=== PATIENT | female | born 1935 | race Two or more races ===

== ENCOUNTER 2024-04-23 11:55 | Inpatient (IN) | payer OTHER, SELFPAY ==
[2024-04-18 09:28] VITALS: BMI 22.6
[2024-04-18 10:13] LABS: APTT 27.1 Sec (23.4-35.0); INR 1.07; PT 13.9 Sec (11.4-14.6)
[2024-04-18 10:21] LABS: Hematocrit 41.7 % (37.0-47.0); Hemoglobin 13.5 g/dL (12.0-16.0); Mean Corp Hgb Conc. 32.4 g/dL (33.0-37.0); Mean Corpuscular Hgb 29.7 pg (27.0-31.0); Mean Corpuscular Volume 91.6 fL (81.0-99.0); Mean Platelet Volume 11.3 fL (7.4-10.4); Platelet Count 256 10^3/uL (130-400); Red Blood Cell Count 4.55 10^6/uL (4.20-5.40); Red Cell Dist. Width 15.6 % (11.5-14.5); White Blood Cell Count 6.8 10^3/uL (4.8-10.8)
[2024-04-18 11:53] LABS: Glycohemoglobin (HgbA1c) 5.7 % (4.0-5.6)
[2024-04-18 12:10] LABS: ALT (SGPT) 14 U/L (0-35); AST (SGOT) 30 U/L (14-36); Albumin 4.5 g/dl (3.5-5.0); Alkaline Phosphatase 76 U/L (38-126); Blood Urea Nitrogen 26 mg/dl (7-17); Calcium 9.9 mg/dl (8.4-10.2); Carbon Dioxide 25 mmol/L (22-30); Chloride 105 mmol/L (98-107); Estimated Creatinine Clearance 43 ml/min; Glucose 85 mg/dl (70-99); Potassium 4.1 mmol/L (3.5-5.1); Sodium 142 mmol/L (135-145); Total Bilirubin 0.9 mg/dl (0.2-1.3); Total Protein 7.5 g/dl (6.3-8.2); eGFR > 60.00
[2024-04-23 12:25] VITALS: BP 129/68
--- NOTE | 2024-04-23 13:06 | W.PN.UPDATE ---
Update Note
Progress Note Update
Patient admitted for bowel prep today, surgery in AM. NPO at midnight. Okay for clears today. Patient to take own home medication of ciprofloxicin and metronidazole. Sutab bowel prep patient is bringing from home. Directions below:
Sutab
1. At 3:00 PM Open 1 bottle of 12 tablets. Fill the provided container with 16 ounces of water. Swallow each tablet with a sip of water, and drink the entire amount of water over 15 to 20 minutes.
2. At 4:15 PM Fill the provided container again with 16 ounces of water, and drink the entire amount of water over 30 minutes.
3. At 5:15 PM Fill the provided container again with 16 ounces of water, and drink the entire amount of water over 30 minutes.
4. After finishing the first does, you may again have clear liquids.
5. At 8:00 PM Open the 2nd bottle of 12 tablets. Fill the provided container with 16 ounces of water. Swallow each tablet with a sip of water, and drink the entire amount of water over 15 to 20 minutes.
6. At 9:15 PM Fill the provided container again with 16 ounces of water, and drink the entire amount of water over 30 minutes.
7. At 10:15 PM Fill the provided container again with 16 ounces of water, and drink the entire amount of water over 30 minutes.
8. After finishing the second does, you may again have clear liquids until midnight. Then NPO.
[2024-04-23 13:15] LABS: % Basophils 0.5 % (0-2); % Eosinophils 0.1 % (0-6); % Immature Granulocytes 0.3 % (0-0.5); % Lymphocytes 19.6 % (20.5-51.1); % Monocytes 8.7 % (1.7-9.3); % Neutrophils 70.8 % (42.2-75.2); Absolute Lymphocytes 1.7 10^3/uL (1.2-3.4); Absolute Monocytes 0.8 10^3/uL (0.1-0.6); Absolute Neutrophils 6.1 10^3/uL (1.4-6.5); Hematocrit 41.3 % (37.0-47.0); Hemoglobin 13.9 g/dL (12.0-16.0); Mean Corp Hgb Conc. 33.7 g/dL (33.0-37.0); Mean Corpuscular Hgb 30.3 pg (27.0-31.0); Mean Corpuscular Volume 90.2 fL (81.0-99.0); Nucleated Red Blood Cells % 0 %; Platelet Count 272 10^3/uL (130-400); Red Blood Cell Count 4.58 10^6/uL (4.20-5.40); Red Cell Dist. Width 15.3 % (11.5-14.5); White Blood Cell Count 8.6 10^3/uL (4.8-10.8)
[2024-04-23 13:25] LABS: INR 1.08; PT 13.8 Sec (11.4-14.6)
[2024-04-23 13:26] LABS: APTT 25.2 Sec (23.4-35.0)
[2024-04-23 13:58] LABS: Blood Urea Nitrogen 36 mg/dl (7-17); Calcium 9.8 mg/dl (8.4-10.2); Carbon Dioxide 29 mmol/L (22-30); Chloride 98 mmol/L (98-107); Estimated Creatinine Clearance 34 ml/min; Glucose 97 mg/dl (70-99); Potassium 3.4 mmol/L (3.5-5.1); Sodium 142 mmol/L (135-145); eGFR 54.53
[2024-04-23 15:18] VITALS: BP 131/56
[2024-04-23] MEDS: NON-FORMULARY ITEM 12 BOX PO (15:32)
[2024-04-23] MEDS: NON-FORMULARY ITEM 1 UNIT PO ×3 (15:33→22:55)
[2024-04-23] MEDS: NON-FORMULARY ITEM 500 MG PO (15:33)
[2024-04-23] MEDS: NON-FORMULARY ITEM PO (21:56)
[2024-04-23 23:00] VITALS: BP 122/47
[2024-04-24] VITALS (18 sets, daily range): BP systolic 86–138; BP diastolic 37–78; BMI 22.4
[2024-04-24] MEDS: NON-FORMULARY ITEM 500 MG PO (00:20)
[2024-04-24] MEDS: NSS 1000 IV ×2 (00:22→23:08)
[2024-04-24] MEDS: NON-FORMULARY ITEM 12 BOX PO (04:39)
[2024-04-24 07:52] LABS: % Basophils 0.6 % (0-2); % Eosinophils 0.9 % (0-6); % Immature Granulocytes 0.3 % (0-0.5); % Lymphocytes 20.4 % (20.5-51.1); % Monocytes 6.7 % (1.7-9.3); % Neutrophils 71.1 % (42.2-75.2); Absolute Eosinophils 0.1 10^3/uL (0-0.7); Absolute Lymphocytes 1.4 10^3/uL (1.2-3.4); Absolute Monocytes 0.5 10^3/uL (0.1-0.6); Absolute Neutrophils 4.8 10^3/uL (1.4-6.5); Hematocrit 38.8 % (37.0-47.0); Hemoglobin 13.2 g/dL (12.0-16.0); Mean Corpuscular Volume 88.2 fL (81.0-99.0); Nucleated Red Blood Cells % 0 %; Platelet Count 256 10^3/uL (130-400); Red Cell Dist. Width 15.3 % (11.5-14.5); White Blood Cell Count 6.7 10^3/uL (4.8-10.8)
[2024-04-24 08:40] LABS: Blood Urea Nitrogen 31 mg/dl (7-17); Calcium 9.6 mg/dl (8.4-10.2); Carbon Dioxide 28 mmol/L (22-30); Chloride 105 mmol/L (98-107); Estimated Creatinine Clearance 43 ml/min; Glucose 91 mg/dl (70-99); Potassium 3.3 mmol/L (3.5-5.1); Sodium 148 mmol/L (135-145); eGFR > 60.00
[2024-04-24] MEDS: LIPITOR 10 MG PO (09:14)
[2024-04-24] MEDS: ASPIR LOW (ENTERIC COATED) 81 MG PO (09:15)
[2024-04-24] MEDS: NEURONTIN 600 MG PO (14:18)
[2024-04-24] MEDS: ENTEREG 12 MG PO (14:19)
[2024-04-24] MEDS: HEPARIN 5000 UNITS SC (14:19)
--- NOTE | 2024-04-24 16:34 | CM ---
Patient seen at bedside, with family also present. Patient states that she lives at the [facility] at [place]. Patient lives in [address]. Patient stated that her on 04/09 and that she is just
trying to get her procedure taken care of so she can get better. Patient plan is to go home with VN if needed but she really would rather not go to SNF. IF needed she would like to go to the [facility]. Patient has a cane and a
walker at home. Patient PCP is Dr. Garcia and she uses the [facility] in [place]. Patient family very supportive of patient. CM will continue to follow for discharge planning needs.
Plan; SNF vs home with VN; pending functional assessment
[2024-04-24] MEDS: NSS IV (19:23)
[2024-04-24] MEDS: NON-FORMULARY ITEM PO ×5 (19:23→22:56)
--- NOTE | 2024-04-24 21:08 | W.IMMPOSTOP ---
Surgical Immed Post Op Note
-
Primary Surgeon: Jayesh Busch MD
Learning And Development Intern: MATT Apodaca
Pre-op Diagnosis: Colovaginal fistula
Post-op Diagnosis: Same
Procedure Performed: Cystoscopy with bilateral ureteral stents/ICG by Dr. Meehan
Robotic low anterior resection with intracorporeal anastomosis
Primary vaginorraphy
Anesthesia Type: GET
Specimen / Cultures: Sigmoid colon (suture is proximal)
Additional portion of rectum
Estimated Blood Loss: 60cc
Complications: None
Operative Findings: Chronic abscess cavity in the left hemipelvis from diverticular disease
Loop of ileum secondarily involved
Colovaginal fistula taken down
Primary vaginorraphy
28mm EEA
Right ureteral stent removed at the completion
Normal leak test
Patient's daughter updated.
[2024-04-24 21:40] LABS: Hematocrit 38.2 % (37.0-47.0); Hemoglobin 13.2 g/dL (12.0-16.0); Mean Corp Hgb Conc. 34.6 g/dL (33.0-37.0); Mean Corpuscular Hgb 30.1 pg (27.0-31.0); Mean Platelet Volume 10.8 fL (7.4-10.4); Platelet Count 218 10^3/uL (130-400); Red Blood Cell Count 4.39 10^6/uL (4.20-5.40); Red Cell Dist. Width 15.5 % (11.5-14.5); White Blood Cell Count 3.1 10^3/uL (4.8-10.8)
--- NOTE | 2024-04-24 21:54 | W.PN.UPDATE ---
Update Note
Progress Note Update
Patient developed wide complex QRS tachycardia that spontaneously broke. She was hemodynamically stable. The plan is to monitor her tonight in the ICU/IMU. I ordered antibiotics due to the chronic abscess cavity and chronic extracolonic stool.
Hospitalist consult placed and patient's daughter updated.
[2024-04-24 21:58] LABS: Calcium 8.2 mg/dl (8.4-10.2); Carbon Dioxide 22 mmol/L (22-30); Estimated Creatinine Clearance 49 ml/min; Potassium 2.4 mmol/L (3.5-5.1); eGFR > 60.00
[2024-04-24 22:06] LABS: Blood Urea Nitrogen 22 mg/dl (7-17); Chloride 104 mmol/L (98-107); Glucose 119 mg/dl (70-99); Sodium 144 mmol/L (135-145)
[2024-04-24] MEDS: KCL 270 MEQ IV (22:13)
[2024-04-24 22:16] LABS: Magnesium 2.5 mg/dl (1.6-2.3)
--- NOTE | 2024-04-24 22:17 | CON.HOSP ---
Family Physician
-
Family Physician: Joe Garcia
Chief Complaint
-
wide complex rhythm
History of Present Illness
88-year-old female past medical history of chronic diverticulitis, colovaginal fistula, gallstones, hypertension, left bundle branch block, PVCs CVA, hypothyroidism who presented to [facility] today for robotic cystoscopy with bilateral
ureteral stents and robotic low anterior resection with intracorporeal anastomosis for colovaginal fistula performed jointly with colorectal surgeon/urology. Patient underwent procedure well but afterward developed wide-complex QRS rhythm in PACU
with heart rates up to 140s. Heart rate quickly came back to normal although patient did receive amiodarone in the interim.
Medical History
Past Medical History
Past Medical History: Reports Other (chronic diverticulitis, colovaginal fistula, gallstones, hypertension, left bundle branch block, PVCs CVA, hypothyroidism)
Past Surgical History: Reports Other (Cholecystectomy, hysterectomy, appendectomy, urethral sling, cataract removal)
Social History
Unable to obtain full social history at this time due to: Patient Non-verbal
Allergies / Home Medications
Allergies reflects when Allergies were last updated in [facility].
Home Medications with original date entered in [facility]
Allergy/Medication List:
Allergies
Allergy/AdvReac Type Severity Reaction Status Date / Time
codeine Allergy Intermediate Nausea / Verified 04/23/24 12:51
Vomiting
meperidine [From Demerol] Allergy Intermediate Unknown Verified 04/23/24 12:51
morphine Allergy Intermediate Nausea / Verified 04/23/24 12:51
Vomiting
bacitracin [From Cortisporin] Allergy Mild Hives Verified 04/23/24 12:51
belladonna alkaloids Allergy Mild Rash Verified 04/23/24 12:51
[From Bellergal-S]
ergotamine [From Bellergal-S] Allergy Mild Rash Verified 04/23/24 12:51
erythromycin base Allergy Mild Rash Verified 04/23/24 12:48
hydrochlorothiazide Allergy Mild Unknown Verified 04/23/24 12:51
[From Hyzaar]
hydrocortisone Allergy Mild Hives Verified 04/23/24 12:51
[From Cortisporin]
losartan [From Hyzaar] Allergy Mild Unknown Verified 04/23/24 12:51
neomycin [From Cortisporin] Allergy Mild Hives Verified 04/23/24 12:51
phenobarbital Allergy Mild Rash Verified 04/23/24 12:51
polymyxin B Allergy Mild Hives Verified 04/23/24 12:51
[From Cortisporin]
tetracycline Allergy Mild Rash Verified 04/23/24 12:48
Home Medications
aspirin 81 mg tablet,delayed release 81 mg PO DAILY Blood Clot Prevention/Tx 04/23/24
atorvastatin 10 mg tablet 10 mg PO DAILY High Cholesterol 04/23/24
clopidogrel 75 mg tablet 75 mg PO DAILY Blood Clot Prevention/Tx 04/23/24
duloxetine 30 mg capsule,delayed release 30 mg PO DAILY mental health 04/23/24
hydrochlorothiazide 25 mg tablet 25 mg PO DAILY Blood Pressure 04/23/24
levothyroxine 25 mcg tablet 25 mcg PO DAILY Thyroid 04/23/24
verapamil 240 mg tablet,extended release 240 mg PO DAILY Blood Pressure 04/23/24
Review of Systems
-
Unable to obtain full review of systems at this time due to: Patient Non-verbal
A 12 point Review of Systems was completed except as noted: No
Physical Exam
Vital Signs
Vital Signs
Temp Pulse Resp BP Pulse Ox
98.7 F 74 15 111/49 100
04/24/24 21:50 04/24/24 22:00 04/24/24 22:00 04/24/24 22:00 04/24/24 22:00
Physical Exam
General: Well Developed, Well Nourished and No Apparent Distress
HEENT: Normocephalic, Moist Mucous Membranes and Atraumatic
Respiratory: Clear
Cardiac: S1/S2 and Regular Rhythm; Negative Murmur or Rub
GI: Soft, Non Tender, Non Distended and Normal Bowel Sounds
Rectal: Deferred by Provider
Musculoskeletal: No Clubbing, No Cyanosis and No Edema
Skin: Negative Rash
Neuro: Nonfocal/Grossly Intact
Laboratory Results
-
Laboratory Results
04/24/24 21:35
04/24/24 21:35
PT 13.8 Sec (11.4-14.6) 04/23/24 13:02
INR 1.08 04/23/24 13:02
APTT 25.2 Sec (23.4-35.0) 04/23/24 13:02
Total Bilirubin 0.9 mg/dl (0.2-1.3) 04/18/24 09:16
AST 30 U/L (14-36) 04/18/24 09:16
ALT 14 U/L (0-35) 04/18/24 09:16
Alkaline Phosphatase 76 U/L (38-126) 04/18/24 09:16
Data Reviewed
-
Lab Data: Labs Reviewed
Old Records: Reviewed
Impression / Plan
-
IMPRESSION:
PLAN:
# Chronic diverticulitis
# Colovaginal fistula status post robotic cystoscopy with bilateral ureteral stents, robotic low anterior resection with intracorporeal anastomosis today
-Being managed by colorectal
-N.p.o.
-IV fluids
-Continue ertapenem
# Possible ventricular tachycardia versus SVT with aberrancy triggered by severe hypokalemia
# Old left bundle branch block
-Heart rates up to 140s
-Patient was hemodynamically stable but blood pressure did drop to 90s
-continue fluids
-Amiodarone given by anesthesiologist
-Replete potassium
-Check magnesium
-Give magnesium, likely low
# Hypocalcemia
-Replete calcium
Essential hypertension
-Hydrochlorothiazide held
History of CVA
-Continue aspirin, statin
-Plavix held
Hypothyroidism
-Continue levothyroxine
Anxiety/depression
-Continue duloxetine
[2024-04-24] MEDS: INVANZ 60 MG IV (22:29)
[2024-04-24] MEDS: CALCIUM GLUCONATE 100 IV (23:08)
[2024-04-25] VITALS (16 sets, daily range): BP systolic 102–138; BP diastolic 38–81; PULSE 86; O2SAT 98; BMI 22.4
--- NOTE | 2024-04-25 00:40 | PTCARENOTE ---
pt admitted from PACU- pt is drowsy but easily arousable, able to swallow some ice chips without issues. pt on simple mask, placed on 2L after arrival to floor- 99%. pt NSR with wide BBC, PVC's. pt with bursts of wide complex tachycardia, which
happened in PACU, events lasts a few minutes, rates 140s-150s, pt sleeping during episoded, woken up stating she feels fine. notified CRAP SHOOTER of events- to check labs after K rider is finished. pt was incontinent of stool upon arrival to floor. pt
cleaned up, arechiga care done. arechiga draining blood tinged urine, stent present. five lap sites to abdomen noted, intact with surgical glue, 1 lower transverse site lower abdomen with surgical glue. pt states no pain at this time. pt oriented to new
room, call vo within reach, care ongoing.
--- NOTE | 2024-04-25 02:48 | PTCARENOTE ---
Addendum entered by Juan Navarrete RN 04/25/24 03:07:
rhythm alarming a-fib now, 130s-150s, as EKG getting done rhythm breaks back to NSR- covering NUTRITION MANAGER aware.
Original Note:
pt still with periods of HR going 130s-140s, asymptomatic, pt sleeping. per covering NUTRITION MANAGER AM labs drawn early to check electrolytes after repletion.
[2024-04-25 03:08] LABS: Hematocrit 36.4 % (37.0-47.0); Hemoglobin 12.4 g/dL (12.0-16.0); Mean Corp Hgb Conc. 34.1 g/dL (33.0-37.0); Mean Corpuscular Hgb 30.6 pg (27.0-31.0); Mean Corpuscular Volume 89.9 fL (81.0-99.0); Mean Platelet Volume 10.9 fL (7.4-10.4); Platelet Count 223 10^3/uL (130-400); Red Blood Cell Count 4.05 10^6/uL (4.20-5.40); Red Cell Dist. Width 15.6 % (11.5-14.5); White Blood Cell Count 8.1 10^3/uL (4.8-10.8)
[2024-04-25 03:21] LABS: ALT (SGPT) 15 U/L (0-35); AST (SGOT) 37 U/L (14-36); Alkaline Phosphatase 60 U/L (38-126); Blood Urea Nitrogen 20 mg/dl (7-17); Calcium 8.2 mg/dl (8.4-10.2); Carbon Dioxide 22 mmol/L (22-30); Chloride 108 mmol/L (98-107); Estimated Creatinine Clearance 49 ml/min; Glucose 109 mg/dl (70-99); Magnesium 2.4 mg/dl (1.6-2.3); Sodium 146 mmol/L (135-145); Total Bilirubin 0.7 mg/dl (0.2-1.3); Total Protein 5.5 g/dl (6.3-8.2); eGFR > 60.00
[2024-04-25] MEDS: KCL 270 MEQ IV ×2 (03:45→21:39)
--- NOTE | 2024-04-25 04:24 | W.PN.UPDATE ---
Addendum entered and electronically signed by BINA Albert 04/25/24 06:29:
correction note: Dr. Theodore consulted and is aware.
150mg Amiodarone bolus infiltrated, Antidote ordered.
Addendum entered and electronically signed by BINA Albert 04/25/24 05:08:
HR sustaining in 140's, will start IV Amiodarone drip follow per protocol
Patient has hx of Arrhythmia, on Verapamil 240mg PO daily.
Original Note:
Update Note
Progress Note Update
RN notified COUPON AND BOND COLLECTION CLERK of sinus tach episodes where HR goes in to 150's, but does not sustain. At 0400, noted undetermined rhythm HR in 130's-140's. , 17 100%. will bolus with 150mg. Patient asymptomatic. will order one dose of IV Amiodarone 150mg, if
still continues will do Amiodarone infusion.
consult Dr. Fletcher home economist.
[2024-04-25] MEDS: SYNTHROID 25 MCG PO (04:39)
[2024-04-25] MEDS: CORDARONE 103 MG IV (04:39)
[2024-04-25] MEDS: CORDARONE 518 MG IV (05:20)
--- NOTE | 2024-04-25 05:45 | PTCARENOTE ---
pt still with episodes of sustaining wide complex tachycardia, asymptomatic, rates to 150s. BP stable. pt goes x2 bolus of amiodarone, IV amiodarone ordered and hung at 1mg/min, 33.3ml/hr. cardiology consult placed.
--- NOTE | 2024-04-25 05:49 | VATNOTE ---
CALLED TO ASSESS IV SITE LW. SITE IS INFILTRATED AND MEASURES 15CM X 6CM.REMOVED DOCUMENTED. CIRCUMFERENCE OUTLINED FOR ON-GOING ASSESSMENT. AMIODARONE BOLUS HAD BEEN INFUSING. NEW SITE ESTABLISHED DOCUMENTED AND HYLENEX PROTOCOL ORDERED BY
BINA. AWAITING DELIVERY BY PHARMACY. PT REPORT MINIMAL DISCOMFORT AND SKIN APPEARS SLIGHTLY TRANSLUSCENT.
[2024-04-25] MEDS: HYLENEX 30 UNITS SC ×4 (06:22→06:26)
[2024-04-25] MEDS: CYMBALTA DELAYED RELEASE 30 MG PO (08:13)
[2024-04-25] MEDS: LIPITOR 10 MG PO (08:13)
[2024-04-25] MEDS: ENTEREG 12 MG PO ×2 (08:13→19:24)
[2024-04-25] MEDS: ASPIR LOW (ENTERIC COATED) 81 MG PO (08:13)
--- NOTE | 2024-04-25 08:24 | VATNOTE ---
Left wrist with reported infiltrated. Area appears improved per patient; patient reports pain in area resolved, states swelling appears improved.
--- NOTE | 2024-04-25 09:23 | CON.CAR ---
Addendum entered and electronically signed by Hilton Alva MD 04/25/24 10:11:
I saw and examined the patient.
The DIRECTOR FRANCHISE SALES's note was reviewed and I agree with the note.
88-year-old patient with history of hypertension, left bundle branch block, CVA who underwent robotic cystoscopy with bilateral ureteral stents, robotic low anterior resection 04/24/2024. Consult requested for wide-complex tachycardia. This
occurred in the setting of severe hypokalemia and a potassium of 2.4. Patient's been placed on IV amiodarone and is now in sinus rhythm. In addition potassium is being replaced. Exact etiology of wide-complex tachycardia unclear. Although some
strips are suggestive of A-fib with aberrancy and patient with known left bundle, there are other rhythm strips and ECG which may suggest VT. of note social history notable for patient's of 70 years passing away 2 weeks ago.
-Continue with IV amiodarone and monitor on telemetry
-Replace potassium. Would try to replace to potassium of greater than 4.0
-Check TSH
-Echocardiogram
-Troponins.
-EP to review
Original Note:
Consultation
Consultation Request
Date/Time Consultation Requested: 04/25/24 0400
Date/Time Consultation Performed: 04/25/24 0840
Requesting Provider: Yves CURRAN
Performing Provider: Shanna CURRAN for Dr. Alva
Reason for Consultation: arrhythmia
Medical History
-
Chief Complaint: colovaginal fistula s/p surgery
History of Present Illness:
88 y/o female with hx CVA, hypothyroidism, hypertension, dyslipidemia, LBBB who was diagnosed with colovaginal fistula and is now s/p robotic cystoscopy with b/l ureteral stents, robotic low anterior resection with intracorporeal anastomosis. We are
consulted since wide complex tachycardia was noted on the monitor. She was not symptomatic and BP remained stable overall. SHe is now in SR on amiodarone drip. Potassium was very low 2.4 and has been replaced.
Past Medical History
Past Medical History: CVA, HTN, Hypercholesterolemia, Hypothyroidism and Other (colovaginal fistula. LBBB on pre-op EKG- patient unaware)
Social History
Tobacco: Non-Smoker
Alcohol: Occasional
Personal: (her of 70 years just this month)
Living: Other ([facility] independent living)
Family History
Family History: Reviewed & Not Pertinent
Allergies / Home Medications
Allergy/AdvReac Type Severity Reaction Status Date / Time
codeine Allergy Intermediate Nausea / Verified 04/23/24 12:51
Vomiting
meperidine [From Demerol] Allergy Intermediate Unknown Verified 04/23/24 12:51
morphine Allergy Intermediate Nausea / Verified 04/23/24 12:51
Vomiting
bacitracin [From Cortisporin] Allergy Mild Hives Verified 04/23/24 12:51
belladonna alkaloids Allergy Mild Rash Verified 04/23/24 12:51
[From Bellergal-S]
ergotamine [From Bellergal-S] Allergy Mild Rash Verified 04/23/24 12:51
erythromycin base Allergy Mild Rash Verified 04/23/24 12:48
hydrochlorothiazide Allergy Mild Unknown Verified 04/23/24 12:51
[From Hyzaar]
hydrocortisone Allergy Mild Hives Verified 04/23/24 12:51
[From Cortisporin]
losartan [From Hyzaar] Allergy Mild Unknown Verified 04/23/24 12:51
neomycin [From Cortisporin] Allergy Mild Hives Verified 04/23/24 12:51
phenobarbital Allergy Mild Rash Verified 04/23/24 12:51
polymyxin B Allergy Mild Hives Verified 04/23/24 12:51
[From Cortisporin]
tetracycline Allergy Mild Rash Verified 04/23/24 12:48
�Medication �Instructions �Recorded �Confirmed �Type
aspirin 81 mg tablet,delayed 81 mg PO DAILY Blood Clot 04/23/24 04/23/24 History
release Prevention/Tx
atorvastatin 10 mg tablet 10 mg PO DAILY High Cholesterol 04/23/24 04/23/24 History
clopidogrel 75 mg tablet 75 mg PO DAILY Blood Clot 04/23/24 04/23/24 History
Prevention/Tx
duloxetine 30 mg capsule,delayed 30 mg PO DAILY mental health 04/23/24 04/23/24 History
release
hydrochlorothiazide 25 mg tablet 25 mg PO DAILY Blood Pressure 04/23/24 04/23/24 History
levothyroxine 25 mcg tablet 25 mcg PO DAILY Thyroid 04/23/24 04/23/24 History
verapamil 240 mg tablet,extended 240 mg PO DAILY Blood Pressure 04/23/24 04/23/24 History
release
Review of Systems
-
History Source: Patient
All other systems: Negative unless noted (patient denies any CP, SOB, or palpitations. She has no syncope or dizziness. Currently no post-op pain.)
Physical Exam
Vital Signs
Temp Pulse Resp BP Pulse Ox
99.1 F 72 9 124/46 100
04/25/24 07:28 04/25/24 08:00 04/25/24 08:00 04/25/24 08:00 04/25/24 08:59
Lab Results
04/25/24 02:40
Physical Exam
General: Well Developed, Well Nourished and No Apparent Distress
HEENT: Normocephalic and Anicteric
Respiratory: Clear and Non Labored Respirations
Cardiac: Regular Rhythm
Musculoskeletal: No Edema
Skin: Warm and Dry
Neuro: AO x 3
Psych: Calm
Impression / Plan
-
Colovaginal fistula:
-s/p robotic cystoscopy with bilateral ureteral stents, robotic low anterior resection with intracorporeal anastomosis 04/24/24
-post-op management per primary team
Arrhythmia:
-wide complex tachycardia noted on monitor, which is high-risk n- denies CP, SOB, palps, syncope. Amio administered. K+ was 2.4, then 3.0. Has been replaced. Repeat potassium now- keep above 4.0. Mag is not low. She is on verapamil as an OP, but
did not take yesterday AM.
-now in SR
-continue amiodarone drip, which requires intensive monitoring
-check echo
-check TSH, trend trops
-Strips reviewed - possible AFIB with RVR in patient with baseline LBBB, SVT with aberrancy, or VT. If AFIB, [id number] score is 6 for age, female, HTN, CVA, but post-op cannot be on OAC yet anyway.
-Plan for EP consult.
HTN:
-stable
-monitor post-op
Hypothyroid:
-checking levels
hx CVA:
-on ASA/Plavix and statin
Data Reviewed
-
EKG: Tracing Personally Visualized and interpreted (pre op EKG 04/18/24 SR with PVC, LBBB 77 BPM)
Medical Tests (Nuc Med, Echo etc): Other (echo ordered)
Labs: Labs Reviewed by me
[2024-04-25 11:12] LABS: Potassium 3.2 mmol/L (3.5-5.1)
--- NOTE | 2024-04-25 11:12 | W.PN.CRS1 ---
Addendum entered and electronically signed by Natali Collins PA-C 04/25/24 14:29:
I updated her daughter via phone
Stent #2 to be removed today at bedside this afternoon
Original Note:
Today's Communication / Plan
-
clears
cardiology
lovenox
repeat K
Assessment/Plan
-
POD#1 Robotic low anterior resection with intracorporeal anastomosis, primary vaginorraphy
1. Went into a wide complex QRS post op, hypokalemic. Has been repleted. Appreciate cardiology/hospitalist.
2. Continue amnio gtt per cardiology. Echo ordered.
3. OOB as tolerated. PT ordered.
4. Start lovenox tonight for DVT prophylaxis.
5. Advance diet to clears. Continue IVFs.
6. Continue arechiga for I/O's today.
7. Pain control: Tylenol and Dilaudid PRN.
8. OR pathology pending.
9. I have left a voicemail on her daughter's phone.
Subjective Data
Procedure
04/24/2024- Cystoscopy with bilateral ureteral stents/ICG by Dr. Meehan
Robotic low anterior resection with intracorporeal anastomosis
Primary vaginorraphy
Subjective Data
Date of Service: April 25, 2024
Patient states she has no complaints except she is very thirsty. She has no nausea or vomiting. Her pain is controlled.
Objective Data
-
Vital Signs
Temp Pulse Resp BP Pulse Ox
99.1 F 72 9 124/46 100
04/25/24 07:28 04/25/24 08:00 04/25/24 08:00 04/25/24 08:00 04/25/24 08:59
Intake & Output
04/24/24 04/25/24 04/26/24
06:59 06:59 06:59
Intake Total 100 / 100
Output Total 400 / 400
Balance -300 / -300
Intake:
IV fluids (Total) 100 / 100
Normosol 100 / 100
Output:
Urine, Arechiga 400 / 400
Other:
Number of approximated SMALL 1
amounts of urine
Number of unmeasured liquid
stools
Rectum 2
Lab Results
04/25/24 02:40
Physical Exam
-
General: No Acute Distress and AOx3
Abdomen: Soft, Non Distended and Non Tender
Skin: Warm and Dry
Incision: Clear, Dry, Intact
[2024-04-25 11:21] LABS: Troponin I 0.026 ng/ml
[2024-04-25 12:07] LABS: TSH Reflex To Free T4 0.09 uIU/ml (0.47-4.68)
[2024-04-25 12:35] LABS: Free T4 2.72 ng/dl (0.78-2.19)
[2024-04-25] MEDS: NSS 1000 IV (12:46)
[2024-04-25] MEDS: KCL 40 MEQ PO (12:50)
[2024-04-25] MEDS: NON-FORMULARY ITEM PO ×2 (15:47→16:43)
--- NOTE | 2024-04-25 15:57 | PTCARENOTE ---
Ureteral stent removed by surgery PA. pt tolerating clearliquids. no c/o pain . was oob in chair x 2 hours and tolerated well.
[2024-04-25] MEDS: LOVENOX 40 MG SC (18:01)
--- NOTE | 2024-04-25 18:59 | VATNOTE ---
LATE ENTRY-PT TREATED FOR AMIODARONE EXTRAVASATION DOCUMENTED IN THE MAR. PT TOLERATED PROCEDURE WELL. PCN AWARE OF INTERVENTION AND OUTCOME. VAT TO FOLLOW.
[2024-04-25 20:14] LABS: Blood Urea Nitrogen 19 mg/dl (7-17); Calcium 8.6 mg/dl (8.4-10.2); Carbon Dioxide 28 mmol/L (22-30); Chloride 106 mmol/L (98-107); Estimated Creatinine Clearance 43 ml/min; Glucose 195 mg/dl (70-99); Potassium 3.4 mmol/L (3.5-5.1); Sodium 139 mmol/L (135-145); Troponin I 0.025 ng/ml; eGFR > 60.00
[2024-04-25] MEDS: INVANZ 60 MG IV (20:47)
--- NOTE | 2024-04-25 23:45 | VATNOTE ---
LFA AT AREA OF PREVIOUS AMIODARONE EXTRAVASATION SITE IS MUCH IMPROVED. NO RESIDUAL SWELLING OR PINKNESS NOTED. PT DENIES ANY PAIN OR DISCOMFORT.
[2024-04-26] VITALS (13 sets, daily range): BP systolic 117–155; BP diastolic 53–111; BMI 23.7
[2024-04-26] MEDS: NSS 1000 IV (02:00)
[2024-04-26] MEDS: CORDARONE 518 MG IV (03:41)
[2024-04-26] MEDS: SYNTHROID 25 MCG PO (05:34)
[2024-04-26 06:00] LABS: Blood Urea Nitrogen 21 mg/dl (7-17); Calcium 8.2 mg/dl (8.4-10.2); Carbon Dioxide 29 mmol/L (22-30); Chloride 110 mmol/L (98-107); Estimated Creatinine Clearance 43 ml/min; Glucose 123 mg/dl (70-99); Sodium 141 mmol/L (135-145); eGFR > 60.00
--- NOTE | 2024-04-26 06:33 | W.PN.HOSP.TC ---
Today's Communication/Plan
-
.
Assessment / Plan
Assessment / Plan
Physical Exam
General: Well Developed, Well Nourished and No Apparent Distress
HEENT: Normocephalic, Moist Mucous Membranes and Atraumatic
Respiratory: Clear
Cardiac: S1/S2
GI: Soft, Non Tender, Non Distended.
Rectal: No rectal bleeding
Musculoskeletal: No Clubbing, No Cyanosis and No Edema
Skin: Negative Rash
Neuro: Nonfocal/Grossly Intact
Psych: no agitation
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
She seems to tolerate liquids well
Positive slow BS heard this morning
On IV empiric Abx , Ertapenem. No fevers or leukocytosis, can stop ABx
# Wide- complex tachycardia
Known LBBB
- EKG suggestive of A-fib with aberrancy
- Maintain K & MG in upper normal limit. Hold Synthroid due to suppressed TSH
- Negative troponin, no chest pain
- Echo showed LVEF 60%. Normal diastolic function. No regional wall motion abnormalities . No significant valvular disease
-Continue with aspirin. On amiodarone drip. Can change to oral.
# Hypokalemia, replaced.
#Hyperthyroidism
Low TSH, hold Synthroid
# Hypocalcemia
-Replete calcium
# Essential hypertension
-Hydrochlorothiazide held
# History of CVA
-Continue aspirin, statin
-Plavix held
# Anxiety/depression
-Continue duloxetine
Total time spent to see the patient, examine the patient on the floor, review data and lab results, discuss treatment plan with patient, nursing staff around 55 minutes
Anticipated Discharge: > 48 hours
Subjective/Interval History
-
Date of Service: April 26, 2024
No chest pain
No sob
No fevers
No abd pain or nausea, tolerating liquids
Objective Data
-
Labs:
Laboratory Results
04/25/24 04/25/24 04/26/24
18:03 19:27 05:35
Sodium Cancelled 139 141
Potassium Cancelled 3.4 L 4.0
Chloride Cancelled 106 110 H
Carbon Dioxide Cancelled 28 29
BUN Cancelled 19 H 21 H
Creatinine Cancelled 0.8 0.8
Glucose Cancelled 195 H 123 H
Calcium Cancelled 8.6 8.2 L
Vital Signs:
Vital Signs
Temp Pulse Resp BP Pulse Ox
98.6 F 77 21 143/68 92
04/26/24 03:10 04/26/24 06:00 04/26/24 06:00 04/26/24 06:00 04/26/24 06:00
I&O
04/24/24 04/25/24 04/26/24
06:59 06:59 06:59
Intake Total 100 / 100
Output Total 400 / 400 550 / 550
Balance -300 / -300 -550 / -550
[2024-04-26] MEDS: ASPIR LOW (ENTERIC COATED) 81 MG PO (08:32)
[2024-04-26] MEDS: CYMBALTA DELAYED RELEASE 30 MG PO (08:32)
[2024-04-26] MEDS: ENTEREG 12 MG PO ×2 (08:32→19:50)
[2024-04-26] MEDS: LIPITOR 10 MG PO (08:32)
--- NOTE | 2024-04-26 08:41 | W.PN.CD ---
Today's Communication / Plan
-
transition IV amiodarone to po load
Impression / Plan
-
Colovaginal fistula:
-s/p robotic cystoscopy with bilateral ureteral stents, robotic low anterior resection with intracorporeal anastomosis 04/24/24
-post-op management per primary team
Arrhythmia:
-wide complex tachycardia noted on monitor, which is high-risk n- denies CP, SOB, palps, syncope. Amio administered. K+ was 2.4, then 3.0. Has been replaced. Repeat potassium now- keep above 4.0. Mag is not low. She is on verapamil as an OP, but
did not take yesterday AM.
-now in SR
-transition amiodarone to po.
-400mg po bid x 2 weeks then 400mg po daily, titus possible reduction to 200mg if no recurrent arrhythmia.
-normal LVEF
-On arrival Strips reviewed by cardiology team - possible AFIB with RVR in patient with baseline LBBB, SVT with aberrancy, or VT. If AFIB, [id number] score is 6 for age, female, HTN, CVA, but post-op cannot be on OAC yet anyway.
HTN:
-stable
-monitor post-op
Hypothyroid:
-checking levels
hx CVA:
-on ASA/Plavix and statin
Data Reviewed:
04/25/2024 CONCLUSIONS
Normal biventricular size and systolic function without regional wall motion
abnormality.
Trace aortic regurgitation.
No prior study available for comparison.
Physical Exam
Vital Signs/Labs
Vital Signs
Temp Pulse Resp BP Pulse Ox
98.4 F 77 21 143/68 92
04/26/24 07:24 04/26/24 06:00 04/26/24 06:00 04/26/24 06:00 04/26/24 06:00
04/25/24 04/26/24 04/27/24
06:59 06:59 06:59
Actual Weight 59.1 kg 62.6 kg
04/25/24 02:40
04/26/24 05:35
PT 13.8 Sec (11.4-14.6) 04/23/24 13:02
INR 1.08 04/23/24 13:02
APTT 25.2 Sec (23.4-35.0) 04/23/24 13:02
Magnesium 2.4 mg/dl (1.6-2.3) H 04/25/24 02:40
Free T4 2.72 ng/dl (0.78-2.19) H 04/25/24 10:43
LAB Results
04/25/24 04/25/24 04/25/24
10:43 18:03 19:27
Troponin I 0.026 Cancelled 0.025
04/25/24
21:30
Troponin I Cancelled
Physical Exam
Constitutional: No acute distress
Cardiovascular: Rhythm & rate is regular, Pedal edema is absent, JVD pressure is normal and Systolic murmur absent
Respiratory: Respiratory effort normal, Lungs clear to auscul., Wheeze Absent, Crackles Absent and Rhonchi Absent
Neuro/Psych: AO x 3
Data Reviewed
-
Date of Service: April 26, 2024
EKG: Other (tele with nsr)
--- NOTE | 2024-04-26 11:56 | W.PN.CRS1 ---
Today's Communication / Plan
-
Continue clears
Await flatus
Okay to transfer out of IMU when cleared by cardiology
Assessment/Plan
-
POD#2 Robotic low anterior resection with intracorporeal anastomosis, primary vaginorraphy
1. Went into a wide complex QRS post op, hypokalemic. Potassium now improved to 4.0 this morning.
2. Continue amnio gtt per cardiology. Echo ordered.
3. OOB as tolerated. PT ordered.
4. Start lovenox tonight for DVT prophylaxis.
5. Continue clear liquid diet. If she has flatus I have notified the RN to contact me I will advance her to full's.
6. Discontinue Han.
7. Pain control: Tylenol and Dilaudid PRN.
8. OR pathology pending.
9. Okay to downgrade to [facility] when approved by cardiology.
Subjective Data
Procedure
04/24/2024- Cystoscopy with bilateral ureteral stents/ICG by Dr. Meehan
Robotic low anterior resection with intracorporeal anastomosis
Primary vaginorraphy
Subjective Data
Date of Service: April 26, 2024
Patient states she is hungry. She denies nausea or vomiting. She does not have flatus or bowel movements. She is a little bit bloated but otherwise has no complaints.
Objective Data
-
Vital Signs
Temp Pulse Resp BP Pulse Ox
98.4 F 77 21 143/68 92
04/26/24 07:24 04/26/24 06:00 04/26/24 06:00 04/26/24 06:00 04/26/24 06:00
Intake & Output
04/25/24 04/26/24 04/27/24
06:59 06:59 06:59
Intake Total 100 / 100
Output Total 400 / 400 550 / 550
Balance -300 / -300 -550 / -550
Intake:
IV fluids (Total) 100 / 100
Normosol 100 / 100
Output:
Urine, Han 400 / 400 550 / 550
Lab Results
04/25/24 02:40
04/26/24 05:35
Physical Exam
-
General: No Acute Distress and AOx3
Abdomen: Soft, Non Distended and Non Tender
Skin: Warm and Dry
Incision: Clear, Dry, Intact
[2024-04-26] MEDS: PACERONE 400 MG PO ×2 (14:00→19:50)
[2024-04-26] MEDS: NORMOSOL-R 1000 IV (16:12)
[2024-04-26] MEDS: LOVENOX 40 MG SC (17:42)
[2024-04-26] MEDS: INVANZ 60 MG IV (21:30)
[2024-04-27] VITALS (13 sets, daily range): BP systolic 120–161; BP diastolic 53–93; PULSE 63; BMI 23.6
[2024-04-27] MEDS: SYNTHROID PO (05:33)
[2024-04-27 05:39] LABS: Blood Urea Nitrogen 14 mg/dl (7-17); Calcium 8.2 mg/dl (8.4-10.2); Carbon Dioxide 25 mmol/L (22-30); Chloride 106 mmol/L (98-107); Estimated Creatinine Clearance 57 ml/min; Glucose 89 mg/dl (70-99); Potassium 3.3 mmol/L (3.5-5.1); Sodium 137 mmol/L (135-145); eGFR > 60.00
--- NOTE | 2024-04-27 06:19 | W.PN.HOSP.TC ---
Today's Communication/Plan
-
Can advance diet
Assessment / Plan
Assessment / Plan
Physical Exam
General: Well Developed, Well Nourished and No Apparent Distress
HEENT: Normocephalic, Moist Mucous Membranes and Atraumatic
Respiratory: Clear
Cardiac: S1/S2
GI: Soft, mild central tenderness on palpation, Non Distended.
Rectal: No rectal bleeding
Musculoskeletal: No Clubbing, No Cyanosis and No Edema
Skin: Negative Rash
Neuro: Nonfocal/Grossly Intact
Psych: no agitation
# Hypokalemia, replace
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
She seems to tolerate liquids well
Positive slow BS heard this morning
On IV empiric Abx , Ertapenem. No fevers or leukocytosis, can stop ABx
# Wide- complex tachycardia
Known LBBB
- EKG suggestive of A-fib with aberrancy
- Maintain K & MG in upper normal limit. Hold Synthroid due to suppressed TSH
- Negative troponin, no chest pain
- Echo showed LVEF 60%. Normal diastolic function. No regional wall motion abnormalities . No significant valvular disease
-Continue with aspirin. On amiodarone drip. Changed to oral.
# Hypokalemia, replaced.
#Hyperthyroidism
Low TSH, hold Synthroid
# Hypocalcemia
Replaced.
# Essential hypertension
-Hydrochlorothiazide held
# History of CVA
-Continue aspirin, statin
-Plavix held
# Anxiety/depression
-Continue duloxetine
Total time spent to see the patient, examine the patient on the floor, review data and lab results, discuss treatment plan with patient, nursing staff around 55 minutes
Anticipated Discharge: 24 - 48 hours
Subjective/Interval History
-
Date of Service: April 27, 2024
Doing better
No abd pain this morning
No nausea
Objective Data
-
Labs:
Laboratory Results
04/27/24
04:30
Sodium 137
Potassium 3.3 L
Chloride 106
Carbon Dioxide 25
BUN 14
Creatinine 0.5 L
Glucose 89
Calcium 8.2 L
Vital Signs:
Vital Signs
Temp Pulse Resp BP Pulse Ox
97.8 F 59 16 121/53 95
04/27/24 03:13 04/27/24 04:00 04/27/24 04:00 04/27/24 04:00 04/27/24 05:07
I&O
04/25/24 04/26/24 04/27/24
06:59 06:59 06:59
Intake Total 100 / 100 480 / 480
Output Total 400 / 400 550 / 550 200 / 200
Balance -300 / -300 -550 / -550 280 / 280
[2024-04-27] MEDS: LIPITOR 10 MG PO (08:06)
[2024-04-27] MEDS: ENTEREG 12 MG PO (08:06)
[2024-04-27] MEDS: ASPIR LOW (ENTERIC COATED) 81 MG PO (08:07)
[2024-04-27] MEDS: PACERONE 400 MG PO ×2 (08:07→20:42)
[2024-04-27] MEDS: KCL 20 MEQ PO ×2 (08:07→20:42)
[2024-04-27] MEDS: CYMBALTA DELAYED RELEASE 30 MG PO (08:07)
--- NOTE | 2024-04-27 09:42 | PTCARENOTE ---
Assumed care of pt from nightshift RN. Pt AAOx3, drowsy. Normasol infusing through R. FA at 50ml/hr. NSR on the monitor, resting comfortably in bed. SpO2 95% on RA offering no complaints. Full assessment is as completed in worklist. Pt able to make
needs known, call vo within reach.
[2024-04-27] MEDS: NORMOSOL-R 1000 IV (11:15)
--- NOTE | 2024-04-27 11:52 | W.PN.GS2 ---
Addendum entered and electronically signed by Adalid Laguerre MD 04/27/24 12:19:
Patient seen and examined. Agree with assessment plan as documented below.
Postoperative issues with A-fib with RVR, currently well-controlled on PO amnio. Recovering well from a surgical standpoint. Pain well-controlled. Positive flatus and stool. Abdominal exam benign.
--Advance to FLD
--Stop entereg
--Trend labs and replace electrolytes as needed
--Continue IV abx x4 days post op
--Arrhythmia management as per cardiology
--Transfer to telemetry
--Hold plavix through Monday, Ok for ASA. If full strength AC needed, will likely be able to start tomorrow pending h/h.
--Multimodal analgesics. Added Tramadol for PO options.
--OOB/Ambulate. PT following, may need rehab upon d/c. OT consult placed. CM following
--Lovenox for VTE ppx
Original Note:
Today's Communication / Plan
-
Transfer to tele
Advance to FLD
Assessment / Plan
-
88 yo female with h/o CVA, hypertension, left bundle branch block who prestented for operative management of a colovaginal fistula
POD#3 Cystoscopy with ureteral stent placement. 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
AFVSS
Transferred to IMU post op d/t wide complex tachycardia, ?afib. Cardiology following. Initially on amnio drip and now on PO. Echo with normal EF.
Han/stents now out, voiding well
Bowel recovery with +flatus/stool passage
Hypokalemia: repleted
--Advance to FLD
--Stop entereg
--Trend labs and replace electrolytes as needed
--Continue IV abx x4 days post op
--Arrhythmia management as per cardiology
--Transfer to telemetry
--Hold plavix through Monday, Ok for ASA. If full strength AC needed, will likely be able to start tomorrow pending h/h.
--Multimodal analgesics. Added Tramadol for PO options.
--OOB/Ambulate. PT following, may need rehab upon d/c. OT consult placed. CM following
--Lovenox for VTE ppx
Subjective Data
-
Date of Service: April 27, 2024
Patient seen and examined at bedside with Dr. Laguerre. Denies n/v. Tolerating clears. Passing liquid stools and a lot of flatus. Denies pain. Voiding without difficulty.
Objective Data
-
Intake and Output
04/26/24 04/27/24 04/28/24
06:59 06:59 06:59
Intake Total 480 / 480
Output Total 550 / 550 200 / 200
Balance -550 / -550 280 / 280
Intake:
Oral fluids 480 / 480
Output:
Urine, Han 550 / 550 200 / 200
Other:
How many times incontinent 1 1
SATURATED amount urine
Vital Signs
Temp Pulse Resp BP Pulse Ox
97.7 F 68 14 134/63 96
04/27/24 11:00 04/27/24 10:00 04/27/24 10:00 04/27/24 10:00 04/27/24 09:35
Lab Results
04/25/24 02:40
04/27/24 04:30
Calcium 8.2 mg/dl (8.4-10.2) L 04/27/24 04:30
Magnesium 2.4 mg/dl (1.6-2.3) H 04/25/24 02:40
Total Bilirubin 0.7 mg/dl (0.2-1.3) 04/25/24 02:40
AST 37 U/L (14-36) H 04/25/24 02:40
ALT 15 U/L (0-35) 04/25/24 02:40
Alkaline Phosphatase 60 U/L (38-126) 04/25/24 02:40
Total Protein 5.5 g/dl (6.3-8.2) L 04/25/24 02:40
Albumin 3.0 g/dl (3.5-5.0) L 04/25/24 02:40
Physical Exam
-
NAD
ABD soft, mild incisional tenderness, [employer] DEVELOPER, ND
Incisions with intact glue, well approximated and without erythema
--- NOTE | 2024-04-27 12:58 | VATNOTE ---
During routine assessment, noted that amiodarone infiltration site to L arm appears normal without any visible redness. swelling, or pain. Resolved at this time.
--- NOTE | 2024-04-27 14:47 | W.PN.CD ---
Today's Communication / Plan
-
cm c/s eliquis 5mg po bid
continue po amiodarone load
Impression / Plan
-
Colovaginal fistula:
-s/p robotic cystoscopy with bilateral ureteral stents, robotic low anterior resection with intracorporeal anastomosis 04/24/24
-post-op management per primary team
Arrhythmia:
-wide complex tachycardia noted on monitor, episodes of AF and possibly VT,
-now in SR
-loading amiodarone to po.
-400mg po bid x 2 weeks then 400mg po daily, titus possible reduction to 200mg if no recurrent arrhythmia.
-normal LVEF
- [id number] score is 6 for age, female, HTN, CVA, will start doac when indicated, possibly tomorrow, will ask CM to cristina
HTN:
-stable
-monitor post-op
Hypothyroid:
-checking levels
hx CVA:
-typically on ASA/Plavix and statin
-would prefer DOAC in place of DAPT.
Subjective:
She has no complain, oob in chair doing well.
Data Reviewed:
04/25/2024 CONCLUSIONS
Normal biventricular size and systolic function without regional wall motion
abnormality.
Trace aortic regurgitation.
No prior study available for comparison.
Physical Exam
Vital Signs/Labs
Vital Signs
Temp Pulse Resp BP Pulse Ox
97.7 F 67 17 125/93 96
04/27/24 11:00 04/27/24 12:00 04/27/24 12:00 04/27/24 12:00 04/27/24 09:35
04/26/24 04/27/24 04/28/24
06:59 06:59 06:59
Actual Weight 62.6 kg 62.2 kg
04/25/24 02:40
04/27/24 04:30
PT 13.8 Sec (11.4-14.6) 04/23/24 13:02
INR 1.08 04/23/24 13:02
APTT 25.2 Sec (23.4-35.0) 04/23/24 13:02
Magnesium 2.4 mg/dl (1.6-2.3) H 04/25/24 02:40
Free T4 2.72 ng/dl (0.78-2.19) H 04/25/24 10:43
LAB Results
04/25/24 04/25/24 04/25/24
10:43 18:03 19:27
Troponin I 0.026 Cancelled 0.025
04/25/24
21:30
Troponin I Cancelled
Physical Exam
Constitutional: No acute distress
Cardiovascular: Rhythm & rate is regular, Pedal edema is absent, JVD pressure is normal and Systolic murmur absent
Respiratory: Respiratory effort normal, Lungs clear to auscul., Wheeze Absent, Crackles Absent and Rhonchi Absent
Neuro/Psych: AO x 3
Data Reviewed
-
Date of Service: April 27, 2024
EKG: Other (sinus with pvcs)
--- NOTE | 2024-04-27 16:30 | PTCARENOTE ---
Received pt transfer from IMU. Patient AAO*3. Ambulated with RW one assist to bed. Vital signs stable. All orders reviewed. Pt denies any chest pain and shortness of breath.
[2024-04-27] MEDS: LOVENOX 40 MG SC (17:12)
[2024-04-27] MEDS: INVANZ 60 MG IV (21:47)
[2024-04-28] VITALS (7 sets, daily range): BP systolic 137–166; BP diastolic 54–79; PULSE 69; O2SAT 99
[2024-04-28] MEDS: SYNTHROID 25 MCG PO (05:45)
[2024-04-28 07:47] LABS: Hematocrit 31.7 % (37.0-47.0); Hemoglobin 10.7 g/dL (12.0-16.0); Mean Corp Hgb Conc. 33.8 g/dL (33.0-37.0); Mean Corpuscular Hgb 30.1 pg (27.0-31.0); Mean Platelet Volume 11.2 fL (7.4-10.4); Platelet Count 181 10^3/uL (130-400); Red Blood Cell Count 3.56 10^6/uL (4.20-5.40); Red Cell Dist. Width 15.2 % (11.5-14.5); White Blood Cell Count 6.6 10^3/uL (4.8-10.8)
[2024-04-28 08:09] LABS: ALT (SGPT) 16 U/L (0-35); AST (SGOT) 32 U/L (14-36); Albumin 2.4 g/dl (3.5-5.0); Alkaline Phosphatase 61 U/L (38-126); Blood Urea Nitrogen 12 mg/dl (7-17); Carbon Dioxide 26 mmol/L (22-30); Chloride 104 mmol/L (98-107); Estimated Creatinine Clearance 57 ml/min; Glucose 84 mg/dl (70-99); Magnesium 1.9 mg/dl (1.6-2.3); Phosphorus 2.7 mg/dl (2.5-4.5); Potassium 3.7 mmol/L (3.5-5.1); Sodium 137 mmol/L (135-145); Total Bilirubin 0.6 mg/dl (0.2-1.3); Total Protein 4.8 g/dl (6.3-8.2); eGFR > 60.00
[2024-04-28] MEDS: CYMBALTA DELAYED RELEASE 30 MG PO (08:43)
[2024-04-28] MEDS: LIPITOR 10 MG PO (08:44)
[2024-04-28] MEDS: KCL 20 MEQ PO ×2 (08:44→20:02)
[2024-04-28] MEDS: PACERONE 400 MG PO ×2 (08:44→20:02)
[2024-04-28] MEDS: ASPIR LOW (ENTERIC COATED) 81 MG PO (08:45)
--- NOTE | 2024-04-28 10:00 | W.PN.GS2 ---
Addendum entered and electronically signed by Adalid Laguerre MD 04/28/24 10:12:
Patient seen and examined. Assessment plan as document below.
No complaints. Pain well-controlled. Tolerating LRD. Reports passing flatus and stool. Ambulating. Denies chest pain or shortness of breath.
Gen: NAD
Abd: soft, NT/ND, non-peritoneal, incisions c/d/i - no erythema, ecchymosis or drainage
88 yo female with h/o CVA, hypertension, left bundle branch block who prestented for operative management of a colovaginal fistula
POD#4 Cystoscopy with ureteral stent placement. 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
AFVSS
Transferred to IMU post op d/t wide complex tachycardia/afib. Initially on amnio drip and now on PO. Echo with normal EF.
Han/stents now out, voiding well
Bowel recovery with +flatus/stool passage. Diet asvanced to LRD
Mild acute anemia likely secondary to intraop losses and hemodilution. Trend labs, repeat tomorrow with starting Xarelto.
--Continue LRD
--Continue IV abx x4 days post op
--Arrhythmia and HTN management as per Cardiology
--Xarelto to begin today, trend CBC in am
--Multimodal PO analgesics
--OOB/Ambulate. PT following, may need rehab upon d/c. OT consult placed. CM following
--DC Lovenox, given starting Xarelto
--Tentative plan to DC tomorrow
Original Note:
Today's Communication / Plan
-
AC initiation today, CBC in AM
Continue LRD
Assessment / Plan
-
88 yo female with h/o CVA, hypertension, left bundle branch block who prestented for operative management of a colovaginal fistula
POD#4 Cystoscopy with ureteral stent placement. 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
AFVSS
Transferred to IMU post op d/t wide complex tachycardia/afib. Initially on amnio drip and now on PO. Echo with normal EF.
Han/stents now out, voiding well
Bowel recovery with +flatus/stool passage. Diet asvanced to LRD
Mild acute anemia likely secondary to intraop losses and hemodilution. Trend labs.
--Continue LRD
--Continue IV abx x4 days post op
--Arrhythmia management as per cardiology
--Xarelto to begin today, trend CBC in am
--Multimodal PO analgesics
--OOB/Ambulate. PT following, may need rehab upon d/c. OT consult placed. CM following
--Lovenox for VTE ppx
Subjective Data
-
Date of Service: April 28, 2024
Patient seen and examined at bedside with Dr. Laguerre. Denies n/v. Tolerating diet. Passing flatus/stools.
Objective Data
-
Intake and Output
04/27/24 04/28/24 04/29/24
06:59 06:59 06:59
Intake Total 480 / 480 120 / 120
Output Total 200 / 200
Balance 280 / 280 120 / 120
Intake:
Oral fluids 480 / 480 120 / 120
Output:
Urine, Han 200 / 200
Other:
How many times incontinent 1 3
SATURATED amount urine
Vital Signs
Temp Pulse Resp BP Pulse Ox
97.9 F 70 16 137/54 98
04/28/24 09:00 04/28/24 09:00 04/28/24 09:00 04/28/24 09:00 04/28/24 09:00
Lab Results
04/28/24 07:16
04/28/24 07:16
Calcium 8.0 mg/dl (8.4-10.2) L 04/28/24 07:16
Phosphorus 2.7 mg/dl (2.5-4.5) 04/28/24 07:16
Magnesium 1.9 mg/dl (1.6-2.3) 04/28/24 07:16
Total Bilirubin 0.6 mg/dl (0.2-1.3) 04/28/24 07:16
AST 32 U/L (14-36) 04/28/24 07:16
ALT 16 U/L (0-35) 04/28/24 07:16
Alkaline Phosphatase 61 U/L (38-126) 04/28/24 07:16
Total Protein 4.8 g/dl (6.3-8.2) L 04/28/24 07:16
Albumin 2.4 g/dl (3.5-5.0) L 04/28/24 07:16
Physical Exam
-
NAD
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
Incisions with intact glue, well approximated and without erythema
--- NOTE | 2024-04-28 10:41 | W.PN.HOSP.TC ---
Today's Communication/Plan
-
.
Assessment / Plan
Assessment / Plan
Physical Exam
General: Well Developed, Well Nourished and No Apparent Distress
HEENT: Normocephalic, Moist Mucous Membranes and Atraumatic
Respiratory: Clear
Cardiac: S1/S2
GI: Soft, mild central tenderness on palpation, Non Distended.
Rectal: No rectal bleeding
Musculoskeletal: No Clubbing, No Cyanosis and No Edema
Skin: Negative Rash
Neuro: Nonfocal/Grossly Intact
Psych: no agitation
# Hypokalemia, replace
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
She seems to tolerate low residue diet
On IV empiric Abx , Ertapenem. No fevers or leukocytosis, can stop ABx in am to finish 5 days course.
# Wide- complex tachycardia
Known LBBB
- EKG suggestive of A-fib with aberrancy
- Maintain K & MG in upper normal limit. Hold Synthroid due to suppressed TSH
- Negative troponin, no chest pain
- Echo showed LVEF 60%. Normal diastolic function. No regional wall motion abnormalities . No significant valvular disease
-Continue with aspirin. On amiodarone drip. Changed to oral.
[id number] 6. D/w Pt agreeable to start on Xarelto.
Appreciate cardiology
# Mild acute blood loss anemia post op. Monitor for now.
# Hypokalemia, replaced.
#Hyperthyroidism
Low TSH, hold Synthroid
# Hypocalcemia
Replaced.
# Essential hypertension
-Hydrochlorothiazide held
# History of CVA
-Continue aspirin, statin
-Plavix held
# Anxiety/depression
-Continue duloxetine
Total time spent to see the patient, examine the patient on the floor, review data and lab results, discuss treatment plan with patient, nursing staff around 57 minutes
Anticipated Discharge: Within 24 hours
Subjective/Interval History
-
Date of Service: April 28, 2024
She denies chest pain or sob
No abd pain
No nausea
Objective Data
-
Labs:
Laboratory Results
04/28/24
07:16
WBC 6.6
Hgb 10.7 L
Hct 31.7 L
Plt Count 181
Sodium 137
Potassium 3.7
Chloride 104
Carbon Dioxide 26
BUN 12
Creatinine 0.5 L
Glucose 84
Calcium 8.0 L
Total Bilirubin 0.6
AST 32
ALT 16
Alkaline Phosphatase 61
Vital Signs:
Vital Signs
Temp Pulse Resp BP Pulse Ox
97.9 F 70 16 137/54 98
04/28/24 09:00 04/28/24 09:00 04/28/24 09:00 04/28/24 09:00 04/28/24 09:00
I&O
04/27/24 04/28/24 04/29/24
06:59 06:59 06:59
Intake Total 480 / 480 120 / 120
Output Total 200 / 200
Balance 280 / 280 120 / 120
--- NOTE | 2024-04-28 14:05 | W.PN.CD ---
Today's Communication / Plan
-
agree wtih xarelto
continue amiodarone load with 400mg po bid x 2 weeks then 400mg po daily, titus possible reduction to 200mg if no recurrent arrhythmia.
Impression / Plan
-
Colovaginal fistula:
-s/p robotic cystoscopy with bilateral ureteral stents, robotic low anterior resection with intracorporeal anastomosis 04/24/24
-post-op management per primary team
Arrhythmia:
-wide complex tachycardia noted on monitor, episodes of AF and possibly VT,
-now in SR
-did have 12 beats NSVT today not symptomatic
-loading amiodarone
-400mg po bid x 2 weeks then 400mg po daily, titus possible reduction to 200mg if no recurrent arrhythmia.
-normal LVEF
- [id number] score is 6 for age, female, HTN, CVA, Xarelto only affordable DOAC, start 20mg daily
HTN:
-stable
-monitor post-op
Hypothyroid:
-checking levels
hx CVA:
-typically on ASA/Plavix and statin
-would prefer DOAC in place of DAPT.
Subjective:
She has no complain, no dizziness, palpitiations or cp
Data Reviewed:
04/25/2024 CONCLUSIONS
Normal biventricular size and systolic function without regional wall motion
abnormality.
Trace aortic regurgitation.
No prior study available for comparison.
Physical Exam
Vital Signs/Labs
Vital Signs
Temp Pulse Resp BP Pulse Ox
97.9 F 70 16 137/54 98
04/28/24 09:00 04/28/24 09:00 04/28/24 09:00 04/28/24 09:00 04/28/24 09:00
04/27/24 04/28/24 04/29/24
06:59 06:59 06:59
Actual Weight 62.2 kg
04/28/24 07:16
04/28/24 07:16
PT 13.8 Sec (11.4-14.6) 04/23/24 13:02
INR 1.08 04/23/24 13:02
APTT 25.2 Sec (23.4-35.0) 04/23/24 13:02
Magnesium 1.9 mg/dl (1.6-2.3) 04/28/24 07:16
Free T4 2.72 ng/dl (0.78-2.19) H 04/25/24 10:43
LAB Results
04/25/24 04/25/24 04/25/24
18:03 19:27 21:30
Troponin I Cancelled 0.025 Cancelled
Physical Exam
Constitutional: No acute distress
Cardiovascular: Rhythm & rate is regular, Pedal edema is absent, JVD pressure is normal, Systolic murmur absent and Diastolic murmur absent
Respiratory: Respiratory effort normal, Lungs clear to auscul., Wheeze Absent, Crackles Absent and Rhonchi Absent
Neuro/Psych: AO x 3
Data Reviewed
-
Date of Service: April 28, 2024
[2024-04-28] MEDS: XARELTO 20 MG PO (17:43)
[2024-04-28] MEDS: INVANZ 60 MG IV (21:43)
[2024-04-29 03:13] VITALS: BP 159/78
[2024-04-29] MEDS: SYNTHROID 25 MCG PO (05:24)
[2024-04-29 07:48] LABS: Hematocrit 32.8 % (37.0-47.0); Mean Corp Hgb Conc. 33.5 g/dL (33.0-37.0); Mean Corpuscular Hgb 30.1 pg (27.0-31.0); Mean Corpuscular Volume 89.6 fL (81.0-99.0); Mean Platelet Volume 11.2 fL (7.4-10.4); Platelet Count 209 10^3/uL (130-400); Red Blood Cell Count 3.66 10^6/uL (4.20-5.40); Red Cell Dist. Width 14.9 % (11.5-14.5)
[2024-04-29 08:00] VITALS: BP 158/66
[2024-04-29 08:27] LABS: Blood Urea Nitrogen 10 mg/dl (7-17); Calcium 8.1 mg/dl (8.4-10.2); Carbon Dioxide 24 mmol/L (22-30); Chloride 105 mmol/L (98-107); Estimated Creatinine Clearance 57 ml/min; Glucose 83 mg/dl (70-99); Magnesium 1.9 mg/dl (1.6-2.3); Potassium 3.7 mmol/L (3.5-5.1); Sodium 136 mmol/L (135-145); eGFR > 60.00
[2024-04-29] MEDS: KCL 20 MEQ PO ×2 (08:41→21:12)
[2024-04-29] MEDS: LIPITOR 10 MG PO (08:41)
[2024-04-29] MEDS: CYMBALTA DELAYED RELEASE 30 MG PO (08:41)
[2024-04-29] MEDS: ASPIR LOW (ENTERIC COATED) 81 MG PO (08:41)
[2024-04-29] MEDS: PACERONE 400 MG PO ×2 (08:42→21:13)
--- NOTE | 2024-04-29 10:32 | W.PN.CRS1 ---
Addendum entered and electronically signed by Adalid Laguerre MD 04/29/24 10:46:
Patient seen and examined. Agree with assessment plan as documented below.
No complaints. Tolerating LRD. No nausea or vomiting. Passing flatus and stool. No dizziness or lightheadedness.
Gen: NAD
Abd: soft NT/ND, non-peritoneal
POD#5 Robotic low anterior resection with intracorporeal anastomosis, primary vaginorraphy
1. Tolerating a low residue diet.
2. Xarelto and amiodarone per cardiology.
3. OOB as tolerated. PT ordered.
4. Dispo: PT/OT recommending skilled rehab. I have reached out to CM.
5. Will d/c IV antibiotics on discharge.
6. OR pathology pending.
Original Note:
Today's Communication / Plan
-
dispo to rehab
Assessment/Plan
-
POD#5 Robotic low anterior resection with intracorporeal anastomosis, primary vaginorraphy
1. Tolerating a low residue diet.
2. Xarelto and amiodarone per cardiology.
3. OOB as tolerated. PT ordered.
4. Dispo: PT/OT recommending skilled rehab. I have reached out to CM.
5. Will d/c IV antibiotics on discharge.
6. OR pathology pending.
Subjective Data
Procedure
04/24/2024- Cystoscopy with bilateral ureteral stents/ICG by Dr. Meehan
Robotic low anterior resection with intracorporeal anastomosis
Primary vaginorraphy
Subjective Data
Date of Service: April 29, 2024
Patient states she feels well today. She has no complaints. She is having bowel movements and flatus. Her pain is controlled.
Objective Data
-
Vital Signs
Temp Pulse Resp BP Pulse Ox
97.6 F 64 18 158/66 97
04/29/24 08:00 04/29/24 08:00 04/29/24 08:00 04/29/24 08:00 04/29/24 08:00
Intake & Output
04/28/24 04/29/24 04/30/24
06:59 06:59 06:59
Intake Total 120 / 120
Balance 120 / 120
Intake:
Oral fluids 120 / 120
Other:
How many times incontinent 3 3
SATURATED amount urine
Lab Results
04/29/24 06:29
04/29/24 06:29
Physical Exam
-
General: No Acute Distress and AOx3
Abdomen: Soft, Non Distended and Non Tender
Skin: Warm and Dry
Incision: Clear, Dry, Intact
--- NOTE | 2024-04-29 10:38 | CM ---
Addendum entered by Homa Muller 04/29/24 16:08:
[facility] [id number].
Addendum entered by Homa Muller 04/29/24 16:00:
Will fax clinicals once seen by PT completed.
Addendum entered by Homa Muller 04/29/24 14:43:
Spoke with Mariajose from [facility], they can offer a bed.
Maurisio Zepeda NPI# [id number], NPI# [id number] (Dr Pierre Underwood)
Addendum entered by Homa Muller 04/29/24 12:17:
Spoke with patients daughter Yuliya Cheung. Updated re awaiting skilled rehab bed and will need [employer] Auth.
Per daughter her mother can be forgetful. Patients spouse recently passed and the [employer] insurance was cancelled as of 04/26/24, it is supposed to be be retroactively effective for April 27.
Per our admission department patient is showing as active with [employer].
IMM completed by daughter.
Original Note:
Patient sen bedside.
PT recommending skilled rehab.
Patient from [facility] in [place] and would like skilled rehab there.
Referral will be faxed to [phone].
Spoke with Mariajose from [facility], she will review.
Patient will require an [employer] authorization if accepted.
Plan: skilled rehab once medically stable, bed available and authorization obtained.
[2024-04-29 11:00] VITALS: BP 148/67
[2024-04-29] MEDS: ORETIC 25 MG PO (12:18)
[2024-04-29 15:00] VITALS: BP 153/75
--- NOTE | 2024-04-29 15:40 | W.PN.HOSP.TC ---
Today's Communication/Plan
-
tolerating LR diet
D/C Planning per surgeon
Rpt TSH in 4 weeks
Would discharge with out synthroid
Assessment / Plan
Assessment / Plan
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
CVS: S1-S2 normal
Chest: CTA B/L
Abdomen: Soft, lap wounds stable, Bowel sounds present
Extremities: No edema, normal pulses
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
# Hypokalemia, replaced
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
She seems to tolerate low residue diet
On IV empiric Abx , Ertapenem. No fevers or leukocytosis
# Wide- complex tachycardia
Known LBBB
EKG suggestive of A-fib with aberrancy
Maintain K & MG in upper normal limit. Hold Synthroid due to suppressed TSH
Negative troponin, no chest pain
Echo showed LVEF 60%. Normal diastolic function. No regional wall motion abnormalities . No significant valvular disease
Continue with aspirin. On PO amiodarone
[id number] 6.
D/w Pt agreeable to start on Xarelto.
Appreciate cardiology
# Mild acute blood loss anemia post op. Monitor for now.
# Hypokalemia, replaced.
# Hyperlipidemia-continue statin
# Hypothyroidism
Low TSH, hold Synthroid
Repeat TSH tomorrow
# Hypocalcemia
Replaced.
# Essential hypertension
-Hydrochlorothiazide held
# History of CVA
-Continue aspirin, statin
-Plavix held
# Anxiety/depression
-Continue duloxetine
# Hypoalbuminemia
# DVT prophylaxis-Xarelto
Anticipated Discharge: 24 - 48 hours
Subjective/Interval History
-
Date of Service: April 29, 2024
Objective Data
-
Labs:
Laboratory Results
04/29/24
06:29
WBC 5.0
Hgb 11.0 L
Hct 32.8 L
Plt Count 209
Sodium 136
Potassium 3.7
Chloride 105
Carbon Dioxide 24
BUN 10
Creatinine 0.5 L
Glucose 83
Calcium 8.1 L
Vital Signs:
Vital Signs
Temp Pulse Resp BP Pulse Ox
97.9 F 70 16 148/67 96
04/29/24 11:00 04/29/24 11:00 04/29/24 11:00 04/29/24 11:00 04/29/24 11:00
I&O
04/28/24 04/29/24 04/30/24
06:59 06:59 06:59
Intake Total 120 / 120
Balance 120 / 120
[2024-04-29] MEDS: XARELTO 20 MG PO (17:37)
[2024-04-29 19:33] VITALS: BP 148/67
[2024-04-29] MEDS: INVANZ 60 MG IV (22:30)
[2024-04-29 23:55] VITALS: BP 138/65
[2024-04-30] VITALS (7 sets, daily range): BP systolic 119–160; BP diastolic 57–70; PULSE 74; O2SAT 98
[2024-04-30] MEDS: SYNTHROID 25 MCG PO (06:09)
[2024-04-30 08:20] LABS: Blood Urea Nitrogen 9 mg/dl (7-17); Calcium 8.9 mg/dl (8.4-10.2); Carbon Dioxide 25 mmol/L (22-30); Chloride 100 mmol/L (98-107); Estimated Creatinine Clearance 57 ml/min; Glucose 94 mg/dl (70-99); Potassium 3.9 mmol/L (3.5-5.1); Sodium 133 mmol/L (135-145); eGFR > 60.00
[2024-04-30] MEDS: PACERONE 400 MG PO ×2 (08:33→19:37)
[2024-04-30] MEDS: ASPIR LOW (ENTERIC COATED) 81 MG PO (08:33)
[2024-04-30] MEDS: CYMBALTA DELAYED RELEASE 30 MG PO (08:33)
[2024-04-30] MEDS: KCL 20 MEQ PO ×2 (08:33→19:37)
[2024-04-30] MEDS: LIPITOR 10 MG PO (08:33)
[2024-04-30] MEDS: ORETIC 25 MG PO (08:33)
--- NOTE | 2024-04-30 09:58 | CM ---
Addendum entered by Homa Muller 04/30/24 11:45:
Await [employer] Authorization and bed at [facility].
Addendum entered by Homa Muller 04/30/24 10:07:
TC to business office, [employer] currently is active.
Original Note:
Spoke with patient and daughter.
Per daughter unsure if insurance if currently active.
Insurance auth initiated for skilled rehab.
Daughter will transport to [facility] once bed available and auth obtained.
Pended [employer] Auth# [id number]
--- NOTE | 2024-04-30 10:00 | W.PN.CRS1 ---
Addendum entered and electronically signed by Natali Collins PA-C 04/30/24 10:54:
I updated the patient's daughter, Yuliya Cheung, by phone.
Addendum entered and electronically signed by Adalid Laguerre MD 04/30/24 10:05:
Patient seen and examined. Agree with assessment plan as documented below.
Stable from a surgical standpoint. Abdomen benign. Dispo pending.
Original Note:
Today's Communication / Plan
-
discharge
Assessment/Plan
-
POD#6 Robotic low anterior resection with intracorporeal anastomosis, primary vaginorraphy
1. Tolerating a low residue diet.
2. Xarelto and amiodarone per cardiology.
3. OOB as tolerated. PT ordered.
4. Dispo: PT/OT recommending skilled rehab. Awaiting auth.
5. Will d/c IV antibiotics on discharge.
6. OR pathology pending.
Subjective Data
Procedure
04/24/2024- Cystoscopy with bilateral ureteral stents/ICG by Dr. Meehan
Robotic low anterior resection with intracorporeal anastomosis
Primary vaginorraphy
Subjective Data
Date of Service: April 30, 2024
Patient states she feels well. She has no complaints. Her pain is controlled. She has no nausea or vomiting.
Objective Data
-
Vital Signs
Temp Pulse Resp BP Pulse Ox
97.8 F 63 16 143/65 98
04/30/24 07:00 04/30/24 07:00 04/30/24 07:00 04/30/24 07:00 04/30/24 07:00
Intake & Output
04/29/24 04/30/24 05/01/24
06:59 06:59 06:59
Intake Total 800 / 800
Balance 800 / 800
Intake:
Oral fluids 800 / 800
Other:
How many times incontinent 3 2
SATURATED amount urine
Lab Results
04/29/24 06:29
04/30/24 07:00
Physical Exam
-
General: No Acute Distress and AOx3
Abdomen: Soft, Non Distended and Non Tender
Skin: Warm and Dry
Incision: Clear, Dry, Intact
--- NOTE | 2024-04-30 11:40 | W.DS.TRANS ---
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
-
Discharge Instructions:
Discharge Diagnosis/Procedures Colovaginal fistula
Diet Low Residue
Activity No strenuous activity
Additional Activity No lifting over 10lbs (gallon of milk)
Driving Restrictions No driving for 1 week
Bathing Restrictions OK to Shower
Blood Work BMP in one week.
TSH , T4 in 4 weeks.
Others Tests X ray of chest 6 months (On amiodarone)
Wound Care Allow glue to to naturally fall off. Do not
pick at incisions.
Instructions: Low Fiber Diet
Stand-Alone Forms:
Changes to Home Medications: Yes
Discharge Medications:
DC Medications w/original date entered in [employer]
aspirin 81 mg tablet,delayed release 81 mg PO DAILY Blood Clot Prevention/Tx 04/23/24
atorvastatin 10 mg tablet 10 mg PO DAILY High Cholesterol 04/23/24
duloxetine 30 mg capsule,delayed release 30 mg PO DAILY mental health 04/23/24
hydrochlorothiazide 25 mg tablet 25 mg PO DAILY Blood Pressure 04/23/24
levothyroxine 25 mcg tablet 25 mcg PO DAILY Thyroid 04/23/24 - held
amiodarone 200 mg tablet (Pacerone) 400 mg (2 x 200 mg) PO BID #90 tabs 04/29/24
rivaroxaban 20 mg tablet (Xarelto) 20 mg PO QPM #30 tabs 04/29/24
famotidine 20 mg tablet (Pepcid) 20 mg PO DAILY Gastrointestinal issue #60 tabs 04/30/24
potassium chloride 20 mEq tablet,extended release(part/cryst) 20 meq PO DAILY 7 days #7 tabs 04/30/24
Home Medication Changes
New:
amiodarone 200 mg tablet (Pacerone) 400 mg (2 x 200 mg) PO BID #90 tabs 04/29/24
rivaroxaban 20 mg tablet (Xarelto) 20 mg PO QPM #30 tabs 04/29/24
famotidine 20 mg tablet (Pepcid) 20 mg PO DAILY Gastrointestinal issue #60 tabs 04/30/24
potassium chloride 20 mEq tablet,extended release(part/cryst) 20 meq PO DAILY 7 days #7 tabs 04/30/24
Stop:
levothyroxine 25 mcg daily tablet - held
Verapamil ER 240mg daily - held
Pending Results: No
--- NOTE | 2024-04-30 15:19 | W.PN.HOSP.TC ---
Today's Communication/Plan
-
Repeat potassium in 1 week
TSH in 4 weeks
Hold Synthroid for 1 month. If low may need Synthroid to be restarted at 12.5 mcg instead of 25 mcg
Assessment / Plan
Assessment / Plan
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
CVS: S1-S2 normal
Chest: CTA B/L
Abdomen: Soft, lap wounds stable, Bowel sounds present
Extremities: No edema, normal pulses
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
# Hypokalemia, replaced
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
She seems to tolerate low residue diet
On IV empiric Abx , Ertapenem. No fevers or leukocytosis
# Wide- complex tachycardia
Known LBBB
EKG suggestive of A-fib with aberrancy
Maintain K & MG in upper normal limit. Hold Synthroid due to suppressed TSH
Negative troponin, no chest pain
Echo showed LVEF 60%. Normal diastolic function. No regional wall motion abnormalities . No significant valvular disease
Continue with aspirin. On PO amiodarone
[id number] 6.
D/w Pt agreeable to start on Xarelto.
Appreciate cardiology
# Mild acute blood loss anemia post op. Monitor for now.
# Hypokalemia, replaced.
On 20 BID now
May need only daily dosage for discharge.
Repeat potassium in 1 week and decide if patient needs more.
# Hyperlipidemia-continue statin
# Hypothyroidism
Low TSH, hold Synthroid
Repeat TSH 4 weeks
# Hypocalcemia
Replaced.
# Essential hypertension
-Hydrochlorothiazide held can restart at discharge
# History of CVA
-Continue aspirin, statin
-Plavix stopped
# Anxiety/depression
-Continue duloxetine
# Hypoalbuminemia
# DVT prophylaxis-Xarelto
D/W Colorectal
Anticipated Discharge: Within 24 hours
Subjective/Interval History
-
Date of Service: April 30, 2024
Objective Data
-
Labs:
Laboratory Results
04/30/24
07:00
Sodium 133 L
Potassium 3.9
Chloride 100
Carbon Dioxide 25
BUN 9
Creatinine 0.5 L
Glucose 94
Calcium 8.9
Vital Signs:
Vital Signs
Temp Pulse Resp BP Pulse Ox
97.3 F 69 19 119/57 97
04/30/24 15:12 04/30/24 15:12 04/30/24 15:12 04/30/24 15:12 04/30/24 15:12
I&O
04/29/24 04/30/24 05/01/24
06:59 06:59 06:59
Intake Total 800 / 800 420 / 420
Balance 800 / 800 420 / 420
[2024-04-30] MEDS: XARELTO 20 MG PO (17:51)
[2024-04-30] MEDS: INVANZ 60 MG IV (23:14)
[2024-05-01] MEDS: FLUSH (NSS) 1 FLUSH IV (00:22)
[2024-05-01] MEDS: SYNTHROID 25 MCG PO (06:07)
[2024-05-01 08:04] VITALS: BP 134/59
[2024-05-01] MEDS: PACERONE 400 MG PO ×2 (08:08→21:02)
[2024-05-01] MEDS: ORETIC 25 MG PO (08:08)
[2024-05-01] MEDS: KCL 20 MEQ PO ×2 (08:09→21:00)
[2024-05-01] MEDS: LIPITOR 10 MG PO (08:09)
[2024-05-01] MEDS: CYMBALTA DELAYED RELEASE 30 MG PO (08:09)
[2024-05-01] MEDS: ASPIR LOW (ENTERIC COATED) 81 MG PO (08:09)
--- NOTE | 2024-05-01 09:54 | W.PN.CRS1 ---
Today's Communication / Plan
-
Ok for transfer from a surgical standpoint
I reviewed postop instruction.
Assessment/Plan
-
POD#7 Robotic low anterior resection with intracorporeal anastomosis, primary vaginorraphy
1. Tolerating a low residue diet.
2. Xarelto and amiodarone per cardiology.
3. OOB as tolerated. PT ordered.
4. Dispo: PT/OT recommending skilled rehab. Awaiting auth.
5. Will d/c IV antibiotics.
6. OR pathology with benign disease, no cancer. Reviewed with patient
Subjective Data
Procedure
04/24/2024- Cystoscopy with bilateral ureteral stents/ICG by Dr. Meehan
Robotic low anterior resection with intracorporeal anastomosis
Primary vaginorraphy
Subjective Data
Date of Service: May 01, 2024
She has no pain. Her appetite is good (improved from preop) and her bowels are functioning.
Objective Data
-
Vital Signs
Temp Pulse Resp BP Pulse Ox
97.6 F 65 19 134/59 97
05/01/24 08:04 05/01/24 08:08 05/01/24 08:04 05/01/24 08:08 05/01/24 08:04
Intake & Output
04/30/24 05/01/24 05/02/24
06:59 06:59 06:59
Intake Total 800 / 800 1480 / 1480
Balance 800 / 800 1480 / 1480
Intake:
Oral fluids 800 / 800 1480 / 1480
Other:
Number of approximated MODERATE 2
amounts of urine
How many times incontinent 1
SMALL amount urine
How many times incontinent 2
MODERATE amount urine
How many times incontinent 2
SATURATED amount urine
Lab Results
04/29/24 06:29
04/30/24 07:00
Physical Exam
-
General: No Acute Distress
Abdomen: Soft, Non Distended and Non Tender
Extremities: No Calf Tenderness
Incision: Clear, Dry, Intact
--- NOTE | 2024-05-01 14:00 | CM ---
Addendum entered by Homa Muller 05/01/24 16:09:
Spoke with Yuliya Cheung, agreeable to the [facility].
Left VM for Jesusita at [facility], await TCB.
Addendum entered by Homa Muller 05/01/24 15:29:
Spoke with Michelle from [facility], she will switch facility and admitting NPI numbers.
Authorization and approvals remain the same.
Bed available tomorrow at [facility], await CB from daughter to confirm.
Addendum entered by Homa Muller 05/01/24 15:18:
IMM completed.
Addendum entered by Homa Muller 05/01/24 14:44:
TC from [facility]- they do not have a bed available.
Per Mariajose, there is a bed available at [facility].
TC to patients daughter Yuliya Cheung, await TCB. Also left VM on Cell phone [phone].
TC to Jesusita at [facility] cell phone# [phone], per Jesusita they have a bed.
Jesusita requested clinicals be faxed to [phone]
[facility] NPI# [id number], MD Macey Vázquez NPI# [id number].
TC to [facility] from [facility], and left VM for call back to see if we can switch the facility.
[facility]
report [phone]

Addendum entered by Homa Muller 05/01/24 14:09:
Facilty unable to accept until tomorrow (someone leaving room today)
Able to accept as early at 10:30 am tomorrow.
[facility]
Report# [phone]

Original Note:
Plan: [facility] when bed available.
[employer] Insurance received
Spoke with Michelle from [facility]
Authorization # [id number]
Approved sub acute level 1
Approved 13 days
Start date 05/01/24, LCD 05/13/24, NRD 05/14/24
Updates to Michelle at P# [phone], F# [phone]
Mariajose from [facility] (p#[phone]) updated, no bed until tomorrow. Mariajose will call if bed situation changes.
--- NOTE | 2024-05-01 15:14 | W.PN.HOSP.TC ---
Today's Communication/Plan
-
BMP today
Assessment / Plan
Assessment / Plan
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
CVS: S1-S2 normal
Chest: CTA B/L
Abdomen: Soft, lap wounds stable, Bowel sounds present
Extremities: No edema, normal pulses
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
# Hypokalemia, replaced
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
She seems to tolerate low residue diet
On IV empiric Abx , Ertapenem -agree with stopping
# Wide- complex tachycardia
Known LBBB
EKG suggestive of A-fib with aberrancy
Maintain K & MG in upper normal limit. Hold Synthroid due to suppressed TSH
Negative troponin, no chest pain
Echo showed LVEF 60%. Normal diastolic function. No regional wall motion abnormalities . No significant valvular disease
Continue with aspirin. On PO amiodarone
[id number] 6. Xarelto.
# Mild acute blood loss anemia post op. Monitor for now.
# Hypokalemia, replaced.
On 20 BID now
May need only daily dosage for discharge.
Repeat potassium in 1 week and decide if patient needs more.
will get a BMP today
# Hyperlipidemia-continue statin
# Hypothyroidism
Low TSH, hold Synthroid
Repeat TSH 4 weeks
# Hypocalcemia
Replaced.
# Essential hypertension
-Hydrochlorothiazide held can restart at discharge
# History of CVA
-Continue aspirin, statin
-Plavix stopped
# Anxiety/depression
-Continue duloxetine
# Hypoalbuminemia
# DVT prophylaxis-Xarelto
D/W RN
Anticipated Discharge: Within 24 hours
Subjective/Interval History
-
Date of Service: May 01, 2024
Objective Data
-
Vital Signs:
Vital Signs
Temp Pulse Resp BP Pulse Ox
97.6 F 65 19 134/59 97
05/01/24 08:04 05/01/24 08:08 05/01/24 08:04 05/01/24 08:08 05/01/24 08:04
I&O
04/30/24 05/01/24 05/02/24
06:59 06:59 06:59
Intake Total 800 / 800 1480 / 1480
Balance 800 / 800 1480 / 1480
[2024-05-01 15:59] VITALS: BP 158/76
[2024-05-01 16:38] LABS: Blood Urea Nitrogen 13 mg/dl (7-17); Carbon Dioxide 23 mmol/L (22-30); Chloride 101 mmol/L (98-107); Estimated Creatinine Clearance 57 ml/min; Glucose 108 mg/dl (70-99); Potassium 4.2 mmol/L (3.5-5.1); Sodium 133 mmol/L (135-145); eGFR > 60.00
[2024-05-01] MEDS: XARELTO 20 MG PO (17:27)
[2024-05-01 20:55] VITALS: BP 116/76
[2024-05-01 23:03] VITALS: BP 146/77
[2024-05-02 03:21] VITALS: BP 138/59
[2024-05-02] MEDS: SYNTHROID PO (06:46)
--- NOTE | 2024-05-02 06:47 | PTCARENOTE ---
Hospitalist note states to 'hold Synthroid'; Synthroid 25 mcg still ordered for 0600 this AM. House CERTIFIED MEDICAL ASSISTANT Yves Rooney notified, verbal order taken to hold synthroid 25 mcg based on notes and have attending clarify.
[2024-05-02 07:00] VITALS: BP 150/80
--- NOTE | 2024-05-02 08:57 | W.PN.CRS1 ---
Today's Communication / Plan
-
discharge, awaiting placement
Assessment/Plan
-
POD#8 Robotic low anterior resection with intracorporeal anastomosis, primary vaginorraphy
1. Tolerating a low residue diet.
2. Xarelto and amiodarone per cardiology.
3. OOB as tolerated. PT ordered.
4. Dispo: PT/OT recommending skilled rehab. Awaiting auth.
5. OR pathology with benign disease, no cancer. Reviewed with patient
6. Discharge when bed found.
Subjective Data
Procedure
04/24/2024- Cystoscopy with bilateral ureteral stents/ICG by Dr. Meehan
Robotic low anterior resection with intracorporeal anastomosis
Primary vaginorraphy
Subjective Data
Date of Service: May 02, 2024
Patient states she is doing well. She has no pain. She denies nausea or vomiting. She has bowel function.
Objective Data
-
Vital Signs
Temp Pulse Resp BP Pulse Ox
97.7 F 72 14 150/80 96
05/02/24 07:00 05/02/24 07:00 05/02/24 07:00 05/02/24 07:00 05/02/24 07:00
Intake & Output
05/01/24 05/02/24 05/03/24
06:59 06:59 06:59
Intake Total 1480 / 1480 480 / 480
Balance 1480 / 1480 480 / 480
Intake:
Oral fluids 1480 / 1480 480 / 480
Other:
Number of approximated MODERATE 2 1
amounts of urine
How many times incontinent 1
SMALL amount urine
How many times incontinent 2
MODERATE amount urine
How many times incontinent 2
SATURATED amount urine
Lab Results
04/29/24 06:29
05/01/24 16:05
Physical Exam
-
General: No Acute Distress and AOx3
Abdomen: Soft, Non Distended and Non Tender
Skin: Warm and Dry
Incision: Clear, Dry, Intact
[2024-05-02 09:34] VITALS: PULSE 73; O2SAT 95
[2024-05-02] MEDS: LIPITOR 10 MG PO (10:22)
[2024-05-02] MEDS: ASPIR LOW (ENTERIC COATED) 81 MG PO (10:22)
[2024-05-02] MEDS: PACERONE 400 MG PO (10:23)
[2024-05-02] MEDS: ORETIC 25 MG PO (10:23)
[2024-05-02] MEDS: KCL 20 MEQ PO (10:23)
[2024-05-02] MEDS: CYMBALTA DELAYED RELEASE 30 MG PO (10:25)
[2024-05-02 11:00] VITALS: BP 124/76
--- NOTE | 2024-05-02 11:01 | CM ---
Patient for transfer to [facility] today.
Daughter will transport.
[facility]
report [phone]
--- NOTE | 2024-05-02 11:19 | W.PN.UPDATE ---
Update Note
Progress Note Update
Not seen as pt ws discharged
== END 2024-05-02 11:06 | DRG 330 ==
LOC: 4 WEST ACU 11:55
PROVIDERS: Hospitalist; Internal Medicine; Nurse Practitioner; Obstetrics & Gynecology; Physician Assistant; Registered Nurse; Student in an Organized Health Care Education/Training Program; ADMITTING PHYSICIAN Surgery; FAMILY PHYSICIAN Internal Medicine Geriatric Medicine; OTHER PHYSICIAN Hospitalist; OTHER PHYSICIAN Internal Medicine Cardiovascular Disease
PROC: 0DNU4ZZ Release Omentum, Percutaneous Endoscopic Approach (ICD-10-PCS; 2024-04-24)
PROC: 0T9880Z Drainage of Bilateral Ureters with Drainage Device, Via Natural or Artificial Opening Endoscopic (ICD-10-PCS; 2024-04-24)
PROC: 0JQC3ZZ Repair Pelvic Region Subcutaneous Tissue and Fascia, Percutaneous Approach (ICD-10-PCS; 2024-04-24)
PROC: 0DTN4ZZ Resection of Sigmoid Colon, Percutaneous Endoscopic Approach (ICD-10-PCS; 2024-04-24)
PROC: 0DJD8ZZ Inspection of Lower Intestinal Tract, Via Natural or Artificial Opening Endoscopic (ICD-10-PCS; 2024-04-24)
PROC: 8E0W4CZ Robotic Assisted Procedure of Trunk Region, Percutaneous Endoscopic Approach (ICD-10-PCS; 2024-04-24)
PROC: 0DBP4ZZ Excision of Rectum, Percutaneous Endoscopic Approach (ICD-10-PCS; 2024-04-24)
PROC: 3E033RZ Introduction of Antiarrhythmic into Peripheral Vein, Percutaneous Approach (ICD-10-PCS; 2024-04-24)
PROC: 3E0K8KZ Introduction of Other Diagnostic Substance into Genitourinary Tract, Via Natural or Artificial Opening Endoscopic (ICD-10-PCS; 2024-04-24)
DX: K57.20 Diverticulitis of large intestine with perforation and abscess without bleeding (principal); D62 Acute posthemorrhagic anemia; N82.3 Fistula of vagina to large intestine; I10 Essential (primary) hypertension; I44.7 Left bundle-branch block, unspecified; E03.9 Hypothyroidism, unspecified; E83.51 Hypocalcemia; F32.A Depression, unspecified; F41.9 Anxiety disorder, unspecified; E78.00 Pure hypercholesterolemia, unspecified; E78.5 Hyperlipidemia, unspecified; E88.09 Other disorders of plasma-protein metabolism, not elsewhere classified; K66.0 Peritoneal adhesions (postprocedural) (postinfection); I48.91 Unspecified atrial fibrillation; E05.90 Thyrotoxicosis, unspecified without thyrotoxic crisis or storm; E87.6 Hypokalemia; Z86.73 Personal history of transient ischemic attack (TIA), and cerebral infarction without residual deficits; Z88.1 Allergy status to other antibiotic agents; Z88.5 Allergy status to narcotic agent; Z88.8 Allergy status to other drugs, medicaments and biological substances; Z79.82 Long term (current) use of aspirin; Z79.890 Hormone replacement therapy; Z79.02 Long term (current) use of antithrombotics/antiplatelets; Z63.4 Disappearance and death of family member
CPT/HCPCS: 88307; 36415; 80048; 80053; 83036; 83735; 84100; 84132; 84439; 84443; 84484; 85025; 85027; 85610; 85730; 86850; 86900; 86901; 93005; 93306; 97116; 97163; 97166; 97530; 97535; J1335